=== PATIENT | male | born 1940 | race Caucasian/White ===

== ENCOUNTER 2017-09-08 14:07 | Emergency (ER) | payer MEDICARE, OTHER ==
[~2017-09-08] VITALS: Ht 182.9 cm; Wt 79.0 kg
[~2017-09-08 14:07] MED LIST: CIPR-9 PO; NORC5TAB PO
[2017-09-08 14:12] VITALS: BP 147/88; PULSE 63; RESP 16; TEMP 97.8; O2SAT 99
[2017-09-08 14:25] VITALS: RESP 17; O2SAT 99
--- NOTE | 2017-09-08 14:26 | PD ---
HPI Chief Complaint: left hip pain status post fall Time Seen by Provider: 14:12 Travel History International Travel<30 days: No Contact w/Intl Traveler<30days: No Traveled to known affect area: No History of Present Illness HPI 77-year-old male with history of dementia with Lewie bodies, comes in with unwitnessed fall from a recliner with secondary left hip pain, with left lower leg shortening and Rotation. Patient received 5 mg morphine IV with improvement of his pain. Pain was originally 9 out of 10 and now is stated to be 0. Patient denies any other injury or complaints. He is allergic to sulfa. PFSH Past Medical History Arthritis: Yes (osteoporosis) Anxiety: Yes Dementia: Yes Genitourinary: Yes (BPH) Parkinson's Disease: Yes Past Surgical History Pacemaker: No Other Surgery: Yes (hemorrhoidectomy) Social History Alcohol Use: No Tobacco Use: No Substance Use: No Allergies-Medications (Allergen,Severity, Reaction): Coded Allergies: Sulfa (Sulfonamide Antibiotics) (Verified Allergy, Intermediate, HIVES, ) Reported Meds & Prescriptions Reported Meds & Active Scripts Active [place] (Hydrocodone-Acetaminophen) 5-325 mg Tab 1 Tab PO Q4H PRN Reported Requip (Ropinirole) 1 Mg Tab 1 Mg PO TID Seroquel (Quetiapine Fumarate) 25 Mg Tab 12.5 Mg PO BID Doxycycline Hyclate 100 Mg Cap 100 Mg PO BID 10 Days Sinemet (Carbidopa-Levodopa) 25-100 Mg Tab 2 Tab PO TID Eldepryl (Selegiline HCl) 5 Mg Cap 5 Mg PO BID Restasis Opth 0.05% (Cyclosporine Opth 0.05%) 0.05% Emul 1 Drop EACH EYE BID Vitamin D-3 (Cholecalciferol) 2,000 Unit Tab 2,000 Units PO DAILY Seroquel (Quetiapine Fumarate) 50 Mg Tab 50 Mg PO HS Omeprazole 40 Mg Cap 40 Mg PO DAILY Review of Systems ROS Limitations: Poor Historian Except as stated in HPI: all other systems reviewed are Neg General / Constitutional: No: Fever Eyes: No: Visual changes HENT: No: Headaches Cardiovascular: No: Chest Pain or Discomfort Respiratory: No: Shortness of Breath Gastrointestinal: No: Abdominal Pain Genitourinary: No: Dysuria Musculoskeletal: No: Pain Skin: No Rash Neurologic: No: Weakness Psychiatric: No: Depression Endocrine: No: Polydipsia Hematologic/Lymphatic: No: Easy Bruising Physical Exam Narrative GENERAL: Patient appears in no acute distress. SKIN: Warm and dry. Normal color. Normal turgor. No obvious signs of trauma or ecchymosis. No abrasions or wounds HEAD: Atraumatic. Normocephalic. EYES: Pupils equal and round. No scleral icterus. No injection or drainage. ENT: No nasal bleeding or discharge. Mucous membranes pink and moist. Pharynx is clear. Airway is patent. NECK: Trachea midline. Supple and nontender. CARDIOVASCULAR: Regular rate and rhythm. RESPIRATORY: No accessory muscle use. Clear to auscultation. Breath sounds equal bilaterally. MUSCULOSKELETAL: Extremities without clubbing, cyanosis, or edema. Patient has external rotation and shortening of the left lower extremity. He complains of discomfort in the left hip region with palpation. No masses appreciated. He has normal neurovascular exam distally. NEUROLOGICAL: Awake and alert. No obvious cranial nerve deficits. Motor grossly within normal limits. Five out of 5 muscle strength in the arms and legs. Normal speech. PSYCHIATRIC: Appropriate mood and affect; insight and judgment normal. Data Data Last Documented VS Vital Signs Date Time Temp Pulse Resp B/P (MAP) Pulse Ox O2 Delivery O2 Flow Rate FiO2 09/08/17 14:25 17 99 Room Air 09/08/17 14:25 62 09/08/17 14:12 97.8 147/88 (107) Orders Orders Complete Blood Count With Diff (09/08/17 14:18) Comprehensive Metabolic Panel (09/08/17 14:18) Prothrombin Time / Inr (Pt) (09/08/17 14:18) Act Partial Throm Time (Ptt) (09/08/17 14:18) Iv Access Insert/Monitor (09/08/17 14:18) Ecg Monitoring (09/08/17 14:18) Oximetry (09/08/17 14:18) NPO (09/08/17 14:18) Sodium Chloride 0.9% Flush (Ns Flush) (09/08/17 14:30) Electrocardiogram (09/08/17 14:18) Femur (Ap & Lat/2vws) (09/08/17 14:18) Hip, Uni(Ap&Lat) W Ap Pelvis (09/08/17 14:18) Urinary Catheter Insert/Apply (09/08/17 14:18) Labs Laboratory Tests Test 09/08/17 14:30 White Blood Count 5.1 TH/MM3 Red Blood Count 4.07 MIL/MM3 Hemoglobin 13.2 GM/DL Hematocrit 37.2 % Mean Corpuscular Volume 91.4 FL Mean Corpuscular Hemoglobin 32.4 PG Mean Corpuscular Hemoglobin Concent 35.4 % Red Cell Distribution Width 13.5 % Platelet Count 156 TH/MM3 Mean Platelet Volume 7.1 FL Neutrophils (%) (Auto) 65.2 % Lymphocytes (%) (Auto) 24.6 % Monocytes (%) (Auto) 7.7 % Eosinophils (%) (Auto) 1.8 % Basophils (%) (Auto) 0.7 % Neutrophils # (Auto) 3.3 TH/MM3 Lymphocytes # (Auto) 1.3 TH/MM3 Monocytes # (Auto) 0.4 TH/MM3 Eosinophils # (Auto) 0.1 TH/MM3 Basophils # (Auto) 0.0 TH/MM3 CBC Comment DIFF FINAL Differential Comment Prothrombin Time 11.6 SEC Prothromb Time International Ratio 1.0 RATIO Activated Partial Thromboplast Time 30.1 SEC Blood Urea Nitrogen 24 MG/DL Creatinine 0.98 MG/DL Random Glucose 82 MG/DL Total Protein 6.5 GM/DL Albumin 3.7 GM/DL Calcium Level 8.7 MG/DL Alkaline Phosphatase 65 U/L Aspartate Amino Transf (AST/SGOT) 23 U/L Alanine Aminotransferase (ALT/SGPT) 12 U/L Total Bilirubin 0.5 MG/DL Sodium Level 141 MEQ/L Potassium Level 4.1 MEQ/L Chloride Level 105 MEQ/L Carbon Dioxide Level 30.3 MEQ/L Anion Gap 6 MEQ/L Estimat Glomerular Filtration Rate 74 ML/MIN [facility] Medical Decision Making Medical Screen Exam Complete: Yes Emergency Medical Condition: Yes Differential Diagnosis Unwitnessed fall. Left hip pain. Left hip fracture. Pelvic fracture. Narrative Course Patient appears medically stable at time of exam. Patient is made nothing by mouth. EKG and chest x-ray ordered. Labs ordered including CBC, CMP. Marroquin catheter is placed. X-rays of the left femur and left hip and pelvis are ordered. Chest x-ray is unremarkable for acute process. CBC is unremarkable. CMP is normal. X-ray of the hip shows no acute findings, and a partially healed obvious femoral neck fracture. Patient is discussed with Dr. Hazel who sees the patient as well. Patient is felt stable for return to nursing facility. Diagnosis Primary Impression: Fall from chair, initial encounter Additional Impressions: Hip pain, left S/p left hip fracture Referrals: Primary Care Physician Patient Instructions: Fall Prevention (ED), General Instructions Additional Instructions: Chest x-ray is unremarkable for acute process. CBC is unremarkable. CMP is normal. X-ray of the hip shows no acute findings, and a partially healed obvious femoral neck fracture. Patient is discussed with Dr. Hazel who sees the patient as well. Patient is felt stable for return to nursing facility. Med/Other Pt SpecificInfo: No Change to Meds Disposition: 01 DISCHARGE HOME Condition: Stable Kwame Wallis Sep 08, 2017 14:26
[2017-09-08] MEDS ORDERED: SODIUM CHLORIDE 0.9% FLUSH 10 ML FLUSH IV FLUSH PRN (14:30)
[2017-09-08 15:07] LABS: AUTOMATED NEUTROPHIL # 3.3 TH/MM3 (1.8-7.7); BASOPHIL % 0.7 % (0.0-2.0); EOSINOPHIL # 0.1 TH/MM3 (0-0.4); EOSINOPHIL % 1.8 % (0.0-4.0); HEMATOCRIT 37.2 % (39.0-51.0); HEMOGLOBIN 13.2 GM/DL (13.0-17.0); LYMPH % 24.6 % (9.0-44.0); LYMPHOCYTE # 1.3 TH/MM3 (1.0-4.8); MEAN CELL VOLUME 91.4 FL (80.0-100.0); MEAN CORPUSCULAR HEMOGLOBIN 32.4 PG (27.0-34.0); MEAN CORPUSCULAR HGB CONC 35.4 % (32.0-36.0); MEAN PLATELET VOLUME 7.1 FL (7.0-11.0); MONO % 7.7 % (0.0-8.0); MONOCYTE # 0.4 TH/MM3 (0-0.9); NEUT % 65.2 % (16.0-70.0); PLATELET COUNT 156 TH/MM3 (150-450); RED BLOOD COUNT 4.07 MIL/MM3 (4.50-5.90); RED CELL DISTRIBUTION WIDTH 13.5 % (11.6-17.2); WHITE BLOOD COUNT 5.1 TH/MM3 (4.0-11.0)
[2017-09-08 15:34] LABS: PROTHROMBIN TIME - PATIENT 11.6 SEC (9.8-11.6)
[2017-09-08 15:39] LABS: ALBUMIN 3.7 GM/DL (3.4-5.0); AST (GOT) 23 U/L (15-37); BICARBONATE 30.3 MEQ/L (21.0-32.0); BLOOD UREA NITROGEN 24 MG/DL (7-18); CALCIUM 8.7 MG/DL (8.5-10.1); CHLORIDE 105 MEQ/L (98-107); CREATININE 0.98 MG/DL (0.60-1.30); GLOMERULAR FILTRATION RATE 74 ML/MIN (>89); GLUCOSE,RANDOM 82 MG/DL (74-106); SODIUM (NA) 141 MEQ/L (136-145)
[2017-09-08 15:42] LABS: ALKALINE PHOSPHATASE 65 U/L (45-117); ALT (GPT) 12 U/L (12-78); TOTAL BILIRUBIN ADULT 0.5 MG/DL (0.2-1.0); TOTAL PROTEIN 6.5 GM/DL (6.4-8.2)
--- NOTE | 2017-09-08 16:11 | RADRPT ---
EXAM DATE/TIME: 09/08/2017 15:34 [facility] COMPARISON: HIP LEFT (AP&LAT 2/3VWS) W AP PELVIS, July 21, 2017, 14:53. INDICATIONS : Fall, left hip pain. MEDICAL HISTORY : None. SURGICAL HISTORY : Hip pinning. ENCOUNTER: Initial ACUITY: 1 day PAIN SCORE: 0/10 LOCATION: Left hip FINDINGS: 3 orthopedic pins in the proximal left femur stable from prior. The bony pelvic ring appears grossly intact. There is sclerosis at the fracture line medially and persistent fracture step off seen supe riorly; the superior step off is unchanged from prior examination 07/21/17. CONCLUSION: No acute findings. There is evidence of partial healing of the left femoral neck fracture in the inf erior medial aspect and with non-bony union superiorly. Lavell Styles MD on September 08, 2017 at 16:08 Board Certified Radiologist. This report was verified electronically.
--- NOTE | 2017-09-08 16:31 | RADRPT ---
EXAM DATE/TIME: 09/08/2017 15:38 [facility] COMPARISON: HIP LEFT (AP&LAT 2/3VWS) W AP PELVIS, July 21, 2017, 14:53. INDICATIONS : Fall, pain in left hip. MEDICAL HISTORY : None. SURGICAL HISTORY : Left hip pinning. ENCOUNTER: Initial ACUITY: 1 day PAIN SCORE: 0/10 LOCATION: Left femur FINDINGS: Two view examination of the left femur demonstrates no evidence of acute fracture or dislocation. Piotr ny mineralization is normal. There 3 orthopedic pins in the proximal left femur; there is a persiste nt cortical step off at the superior junction of femoral head or neck, unchanged from prior exam.. Th e soft tissue structures are intact. CONCLUSION: 1. The shaft of the femur is intact. 2. Stable appearance to the left femoral neck fracture with [address] there Lavell Styles MD on September 08, 2017 at 16:28 Board Certified Radiologist. This report was verified electronically.
[2017-09-08 18:10] VITALS: BP 130/77; TEMP 97.8
--- NOTE | 2017-09-08 21:10 | EKG ---
Date Performed: 09/08/2017 Time Performed: 14:47:30 PTAGE: 77 years EKG: Sinus rhythm MODERATE INTRAVENTRICULAR CONDUCTION DELAY BORDERLINE ECG PREVIOUS TRACING : 05/31/2017 20.57 Compared to prior tracing no significant change DOCTOR: Elisabeth Stevens Interpretating Date/Time 09/08/2017 21:08:54
== END 2017-09-08 18:11 | disposition home or self-care (01) ==
LOC: EDUNIT# 14:07 → NEPC 14:07
DX: M25.552 Pain in left hip (principal); R94.31 Abnormal electrocardiogram [ECG] [EKG]; F03.90 Unspecified dementia, unspecified severity, without behavioral disturbance, psychotic disturbance, mood disturbance, and anxiety; Z87.81 Personal history of (healed) traumatic fracture; Z87.39 Personal history of other diseases of the musculoskeletal system and connective tissue; Z86.59 Personal history of other mental and behavioral disorders; Z87.438 Personal history of other diseases of male genital organs; W07.XXXA Fall from chair, initial encounter; Y92.129 Unspecified place in nursing home as the place of occurrence of the external cause
CPT/HCPCS: 51702; 73502; 73552; 80053; 85025; 85610; 85730; 93005

== ENCOUNTER 2017-09-09 11:19 | Inpatient (IN) | payer MEDICARE, OTHER ==
[2017-09-09] VITALS (7 sets, daily range): BP systolic 137–161; BP diastolic 70–88; PULSE 63–89; RESP 16–22; TEMP 97.3–102.1; O2SAT 96–99
[~2017-09-09 11:19] MED LIST changes: -CIPR-9 PO
--- NOTE | 2017-09-09 12:05 | PD ---
HPI Chief Complaint: Fever Time Seen by Provider: 11:46 Travel History International Travel<30 days: No Contact w/Intl Traveler<30days: No Traveled to known affect area: No History of Present Illness HPI 77 years old male was brought in from local retirement for fever. Patient has history of dementia. Patient had a fall yesterday and was seen in emergency room at the [facility]. CBC CMP and x-ray of the femur and hip were done. Results were negative. Patient was discharged home. Patient's on doxycycline day #7 for UTI. Patient started having fever this morning. Patient also was with increasing trembling. Patient has history of Parkinson disease. Patient complains of headache. Patient states that headache aching headache diffuse over the head. Patient denies any visual change. Patient denies any neck pain. Patient denies any chest pain or shortness of breath. Patient denies abdominal pain. Patient denies any focal weakness or numbness of the extremity. Patient has history of urinary incontinence. PFSH Past Medical History Arthritis: Yes (osteoporosis) Anxiety: Yes Dementia: Yes Diminished Hearing: No Genitourinary: Yes (BPH) Neurologic: Yes Parkinson's Disease: Yes Psychiatric: Yes Tetanus Vaccination: Unknown Influenza Vaccination: Yes Past Surgical History Pacemaker: No Other Surgery: Yes (hemorrhoidectomy) Social History Alcohol Use: No Tobacco Use: No Substance Use: No Allergies-Medications (Allergen,Severity, Reaction): Coded Allergies: Sulfa (Sulfonamide Antibiotics) (Verified Allergy, Intermediate, HIVES, ) Reported Meds & Prescriptions Reported Meds & Active Scripts Active [place] (Hydrocodone-Acetaminophen) 5-325 mg Tab 1 Tab PO Q4H PRN Reported Requip (Ropinirole) 1 Mg Tab 1 Mg PO TID Doxycycline Hyclate 100 Mg Cap 100 Mg PO BID Alprazolam 0.5 Mg Tab 0.5 Mg PO BID PRN Vitamin D3 (Cholecalciferol) 2,000 Unit Cap 2,000 Units PO DAILY Avodart (Dutasteride) 0.5 Mg Cap 0.5 Mg PO DAILY Seroquel (Quetiapine Fumarate) 25 Mg Tab 12.5 Mg PO BID Sinemet (Carbidopa-Levodopa) 25-100 Mg Tab 2 Tab PO TID Eldepryl (Selegiline HCl) 5 Mg Cap 5 Mg PO BID Restasis Opth 0.05% (Cyclosporine Opth 0.05%) 0.05% Emul 1 Drop EACH EYE BID Seroquel (Quetiapine Fumarate) 50 Mg Tab 50 Mg PO HS Omeprazole 40 Mg Cap 40 Mg PO DAILY Review of Systems General / Constitutional: Positive: Fever Eyes: No: Visual changes HENT: Positive: Headaches Cardiovascular: No: Chest Pain or Discomfort Respiratory: No: Shortness of Breath Gastrointestinal: No: Abdominal Pain Genitourinary: No: Dysuria Musculoskeletal: No: Pain Skin: No Rash Neurologic: No: Weakness Psychiatric: No: Depression Endocrine: No: Polydipsia Hematologic/Lymphatic: No: Easy Bruising Physical Exam Narrative GENERAL: Well-nourished, well-developed patient. SKIN: Focused skin assessment warm/dry. HEAD: Normocephalic. EYES: No scleral icterus. No injection or drainage. NECK: Supple, trachea midline. No JVD or lymphadenopathy. CARDIOVASCULAR: Regular rate and rhythm without murmurs, gallops, or rubs. RESPIRATORY: Breath sounds equal bilaterally. No accessory muscle use. GASTROINTESTINAL: Abdomen soft, non-tender, nondistended. MUSCULOSKELETAL: No cyanosis, or edema. BACK: Nontender without obvious deformity. No CVA tenderness. exam: Patient has mild irritation to the scrotum area from urinary incontinence. No evidence of infection. No urethral discharge. No rash noted. Neurologic exam: Patient's awake and alert oriented to place and person. Patient can move all extremity. No obvious focal neurological deficit. Data Data Last Documented VS Vital Signs Date Time Temp Pulse Resp B/P (MAP) Pulse Ox O2 Delivery O2 Flow Rate FiO2 09/09/17 13:28 78 20 150/84 (106) 97 Room Air 09/09/17 12:20 102.1 Orders Orders Lactic Acid (09/09/17 11:39) Electrocardiogram (09/09/17 11:55) Complete Blood Count With Diff (09/09/17 11:55) Comprehensive Metabolic Panel (09/09/17 11:55) Prothrombin Time / Inr (Pt) (09/09/17 11:55) Act Partial Throm Time (Ptt) (09/09/17 11:55) Blood Culture (09/09/17 11:55) Urinalysis - C+S If Indicated (09/09/17 11:55) Thyroid Stimulating Hormone (09/09/17 11:55) Influenzae A/B Antigen (09/09/17 11:55) Chest, Single Ap (09/09/17 11:55) Ct Brain W/O Iv Contrast(Rout) (09/09/17 11:55) Iv Access Insert/Monitor (09/09/17 11:55) Ecg Monitoring (09/09/17 11:55) Oximetry (09/09/17 11:55) Urinary Catheter Insert/Apply (09/09/17 11:55) Sodium Chlor 0.9% 1000 Ml Inj (Ns 1000 M (09/09/17 12:45) Acetaminophen (Tylenol) (09/09/17 12:45) Urine Culture (09/09/17 12:15) Labs Laboratory Tests Test 09/09/17 11:30 09/09/17 12:15 White Blood Count 4.5 TH/MM3 Red Blood Count 4.20 MIL/MM3 Hemoglobin 12.9 GM/DL Hematocrit 37.9 % Mean Corpuscular Volume 90.2 FL Mean Corpuscular Hemoglobin 30.6 PG Mean Corpuscular Hemoglobin Concent 33.9 % Red Cell Distribution Width 12.6 % Platelet Count 146 TH/MM3 Mean Platelet Volume 6.9 FL Neutrophils (%) (Auto) 94.1 % Lymphocytes (%) (Auto) 5.1 % Monocytes (%) (Auto) 0.2 % Eosinophils (%) (Auto) 0.1 % Basophils (%) (Auto) 0.5 % Neutrophils # (Auto) 4.3 TH/MM3 Lymphocytes # (Auto) 0.2 TH/MM3 Monocytes # (Auto) 0.0 TH/MM3 Eosinophils # (Auto) 0.0 TH/MM3 Basophils # (Auto) 0.0 TH/MM3 CBC Comment DIFF FINAL Differential Comment Prothrombin Time 11.7 SEC Prothromb Time International Ratio 1.1 RATIO Activated Partial Thromboplast Time 26.1 SEC Blood Urea Nitrogen 26 MG/DL Creatinine 1.10 MG/DL Random Glucose 83 MG/DL Total Protein 6.5 GM/DL Albumin 3.7 GM/DL Calcium Level 8.4 MG/DL Alkaline Phosphatase 65 U/L Aspartate Amino Transf (AST/SGOT) 51 U/L Alanine Aminotransferase (ALT/SGPT) 29 U/L Total Bilirubin 0.9 MG/DL Sodium Level 142 MEQ/L Potassium Level 3.8 MEQ/L Chloride Level 105 MEQ/L Carbon Dioxide Level 27.0 MEQ/L Anion Gap 10 MEQ/L Estimat Glomerular Filtration Rate 65 ML/MIN Lactic Acid Level 1.6 mmol/L Thyroid Stimulating Hormone 3rd Gen 1.430 uIU/ML Urine Collection Type CLEAN CATCH Urine Color YELLOW Urine Turbidity CLEAR Urine pH 6.5 Urine Specific [place] 1.012 Urine Protein NEG mg/dL Urine Glucose (UA) NEG mg/dL Urine Ketones NEG mg/dL Urine Occult Blood LARGE Urine Nitrite NEG Urine Bilirubin NEG Urine Leukocyte Esterase SMALL Urine RBC 20-24 /hpf Urine WBC 9-14 /hpf Urine Squamous Epithelial Cells 0-5 /hpf Microscopic Urinalysis Comment CULTURE INDICATED Urine Collection Time 12:15 [facility] Medical Decision Making Medical Screen Exam Complete: Yes Emergency Medical Condition: Yes Interpretation(s) Last Impressions Head CT 09/09/17 1155 Signed Impressions: Service Date/Time: Saturday, September 09, 2017 12:28 - CONCLUSION: Negative noncontrast CT. Gopi Chinchilla MD Chest X-Ray 09/09/17 1488 Signed Impressions: Service Date/Time: Saturday, September 09, 2017 12:05 - CONCLUSION: No acute disease. There is no focal consolidation. Gopi Chinchilla MD 1336 PM. CBC WBC 4.5. Hemoglobin 12 point hematocrit 37.9. Platelet 146. 94 neutrophil. CMP within normal limit. Lactic acid 1.6. BUN 26. GFR 65. UA positive for WBC and RBC. Differential Diagnosis Differential diagnosis including viral syndrome, UTI, pneumonia, sepsis, encephalitis. Narrative Course 77 years old male with fever. Patient on day 7 of doxycycline for UTI. Normal saline solution 1 L IV bolus. Tylenol 650 mg by mouth. Vancomycin 1 g IV. Zosyn 3.375 g IV. Diagnosis Primary Impression: Sepsis Qualified Codes: A41.9 - Sepsis, unspecified organism Additional Impression: UTI (urinary tract infection) Qualified Codes: N30.00 - Acute cystitis without hematuria Admitting Information Admitting Physician Requests: Admit Gaurav Kim MD Sep 09, 2017 12:05
--- NOTE | 2017-09-09 12:28 | RADRPT ---
EXAM DATE/TIME: 09/09/2017 12:05 [facility] COMPARISON: No previous studies available for comparison. INDICATIONS : Fever MEDICAL HISTORY : Parkinson's disease SURGICAL HISTORY : None. ENCOUNTER: Initial ACUITY: 1 day PAIN SCORE: 0/10 LOCATION: Bilateral chest FINDINGS: A single view of the chest demonstrates the lungs to be symmetrically aerated without evidence of mas s, infiltrate or effusion. The study is Midinspiratory with mild crowding of the lung vasculature. T here overlying electrocardiogram leads. The cardiomediastinal contours are unremarkable. Osseous str uctures are intact. CONCLUSION: No acute disease. There is no focal consolidation. Gopi Chinchilla MD on September 09, 2017 at 12:26 Board Certified Radiologist. This report was verified electronically.
[2017-09-09 12:32] LABS: AUTOMATED NEUTROPHIL # 4.3 TH/MM3 (1.8-7.7); BASOPHIL % 0.5 % (0.0-2.0); EOSINOPHIL % 0.1 % (0.0-4.0); HEMATOCRIT 37.9 % (39.0-51.0); HEMOGLOBIN 12.9 GM/DL (13.0-17.0); LYMPH % 5.1 % (9.0-44.0); LYMPHOCYTE # 0.2 TH/MM3 (1.0-4.8); MEAN CELL VOLUME 90.2 FL (80.0-100.0); MEAN CORPUSCULAR HEMOGLOBIN 30.6 PG (27.0-34.0); MEAN CORPUSCULAR HGB CONC 33.9 % (32.0-36.0); MEAN PLATELET VOLUME 6.9 FL (7.0-11.0); MONO % 0.2 % (0.0-8.0); NEUT % 94.1 % (16.0-70.0); PLATELET COUNT 146 TH/MM3 (150-450); RED CELL DISTRIBUTION WIDTH 12.6 % (11.6-17.2); WHITE BLOOD COUNT 4.5 TH/MM3 (4.0-11.0)
[2017-09-09 12:41] LABS: BILIRUBIN, URINE NEG (NEG); BLOOD, URINE LARGE (NEG); GLUCOSE,URINE NEG (NEG); KETONE, URINE NEG (NEG); NITRITE,URINE NEG (NEG); PH, URINE 6.5 (5.0-8.5); URINE LEUKOCYTE ESTERASE SMALL (NEG)
[2017-09-09] MEDS ORDERED: SODIUM CHLOR 0.9% 1000 ML INJ 1,000 ML IV ONE (12:45)
[2017-09-09] MEDS ORDERED: ACETAMINOPHEN 325 MG TAB PO ONE (12:45)
[2017-09-09 12:46] LABS: CHLORIDE 105 MEQ/L (98-107); SODIUM (NA) 142 MEQ/L (136-145)
[2017-09-09 12:49] LABS: CALCIUM 8.4 MG/DL (8.5-10.1)
[2017-09-09 12:50] LABS: ALBUMIN 3.7 GM/DL (3.4-5.0); BLOOD UREA NITROGEN 26 MG/DL (7-18); GLUCOSE,RANDOM 83 MG/DL (74-106)
--- NOTE | 2017-09-09 12:52 | RADRPT ---
EXAM DATE/TIME: 09/09/2017 12:28 [facility] COMPARISON: No previous studies available for comparison. INDICATIONS : Cephalgia. Fever. RADIATION DOSE: 67.95 CTDIvol (mGy) MEDICAL HISTORY : Dementia. Parkinsons. SURGICAL HISTORY : Hemorrhoidectomy. ENCOUNTER: Initial ACUITY: 1 day PAIN SCALE: 6/10 LOCATION: cranial TECHNIQUE: Multiple contiguous axial images were obtained of the head. Using automated exposure control and adj ustment of the mA and/or kV according to patient size, radiation dose was kept as low as reasonably a chievable to obtain optimal diagnostic quality images. DICOM format image data is available electro nically for review and comparison. FINDINGS: CEREBRUM: The ventricles are normal for age. No evidence of midline shift, mass lesion, hemorrhage or acute in farction. No extra-axial fluid collections are seen. POSTERIOR FOSSA: The cerebellum and brainstem are intact. The 4th ventricle is midline. The cerebellopontine angle i s unremarkable. EXTRACRANIAL: The visualized portion of the orbits is intact. SKULL: The calvaria is intact. No evidence of skull fracture. CONCLUSION: Negative noncontrast CT. Gopi Chinchilla MD on September 09, 2017 at 12:48 Board Certified Radiologist. This report was verified electronically.
[2017-09-09 12:53] LABS: ALT (GPT) 29 U/L (12-78); AST (GOT) 51 U/L (15-37); GLOMERULAR FILTRATION RATE 65 ML/MIN (>89)
[2017-09-09 12:55] LABS: TOTAL BILIRUBIN ADULT 0.9 MG/DL (0.2-1.0); TOTAL PROTEIN 6.5 GM/DL (6.4-8.2)
[2017-09-09 12:56] LABS: ALKALINE PHOSPHATASE 65 U/L (45-117)
[2017-09-09 12:57] LABS: INTERNATIONAL NORMALIZED RATIO 1.1 RATIO; PROTHROMBIN TIME - PATIENT 11.7 SEC (9.8-11.6)
[2017-09-09 13:17] LABS: URINE COLOR YELLOW (YELLW/STRAW)
[2017-09-09 13:18] LABS: SQUAMOUS EPITHELIAL CELL URINE 0-5 /hpf (0-5)
[2017-09-09] MEDS ORDERED: PIPERACIL-TAZO 3.375 GM PREMIX 50 ML IV ONE (13:45)
[2017-09-09] MEDS: VANCOMYCIN INJ 1,000 MG in SODIUM CHLOR 0.9% 250 ML INJ 250 ML IV ONE ×2 (13:45→16:05)
[2017-09-09] MEDS ORDERED: SODIUM CHLORIDE 0.9% FLUSH 10 ML FLUSH IV FLUSH PRN (14:15)
[2017-09-09] MEDS ORDERED: SENNOSIDES 8.6 MG TAB PO PRN (14:15)
[2017-09-09] MEDS ORDERED: NALOXONE HCL 0.4 MG/ML AMP IV PUSH PRN (14:15)
[2017-09-09] MEDS ORDERED: LACTULOSE SYRUP 20 GM/30 ML CUP PO PRN (14:15)
[2017-09-09] MEDS ORDERED: ACETAMINOPHEN 325 MG TAB PO PRN (14:15)
[2017-09-09] MEDS ORDERED: BISACODYL 10 MG SUPP RECTAL PRN (14:15)
[2017-09-09] MEDS ORDERED: MAGNESIUM HYDROXIDE SUSP 30 ML CUP PO PRN (14:15)
[2017-09-09] MEDS: SODIUM CHLOR 0.9% 1000 ML INJ 1,000 ML IV SCH (16:04)
[2017-09-09] MEDS: ENOXAPARIN SODIUM 40 MG/0.4 ML SYRINGE SQ SCH (16:08)
[2017-09-09] MEDS ORDERED: ALPRAZolam 0.5 MG TAB PO PRN (16:15)
[2017-09-09] MEDS ORDERED: ACETAMINOPHEN/HYDROcodone 325 MG/5 MG TAB PO PRN (16:15)
--- NOTE | 2017-09-09 17:29 | HHI.HP ---
[facility] Admission Diagnosis sepsis. UTI. Diagnoses: Travel History International Travel<30 Days: No Contact w/Intl Traveler <30 Da: No Traveled to Known Affected Are: No Sepsis Criteria SIRS Criteria (2 or more): Temp > 100.9 or < 96.8, RR > 20 or PaCO2 < 32 Criteria Outcome: Meets sepsis criteria History of Present Illness This is a pleasant 77 year-old male assisted living facility resident with past medical history of Parkinson's dementia who was brought into the ER today for evaluation of shaking chills and fever. History is obtained from the patient and from discussing with the ER physician. Patient is able to give a reasonable history although is not oriented to date and is slightly confused at times. The patient had been receiving doxycycline for urinary tract infections. He states he has a history of urinary tract infections in the past as well as urinary incontinence. He was feeling okay up until yesterday when he started to develop chills and fever. Symptoms moderate no palliative or provocative factors. He denied nausea vomiting abdominal pain. He did complain of a slight sore throat yesterday. Also has been having intermittent right temporal headache. No double vision slurred speech unilateral weakness dysarthria. 10 point review systems otherwise negative. Past Family Social History Past Medical History Parkinson's dementia Hypertension Anxiety Orthostatic hypertension BPH GERD Osteoporosis with vitamin D deficiency Past Surgical History Hemorrhoidectomy Left hip surgery Reported Medications Allergies Coded Allergies Type Severity Reaction Last Updated Verified Sulfa (Sulfonamide Antibiotics) Allergy Intermediate HIVES 09/08/17 Yes Active Scripts Medications Dose Route/Sig Max Daily Dose Days Date Category Requip (Ropinirole) 1 Mg Tab 1 Mg PO TID 09/09/17 Reported Doxycycline Hyclate 100 Mg Cap 100 Mg PO BID 09/09/17 Reported Alprazolam 0.5 Mg Tab 0.5 Mg PO BID PRN 09/09/17 Reported Vitamin D3 (Cholecalciferol) 2,000 Unit Cap 2,000 Units PO DAILY 09/09/17 Reported Avodart (Dutasteride) 0.5 Mg Cap 0.5 Mg PO DAILY 09/09/17 Reported Seroquel (Quetiapine Fumarate) 25 Mg Tab 12.5 Mg PO BID 09/08/17 Reported [place] (Hydrocodone-Acetaminophen) 5-325 mg Tab 1 Tab PO Q4H PRN 06/03/17 Rx Sinemet (Carbidopa-Levodopa) 25-100 Mg Tab 2 Tab PO TID 05/31/17 Reported Eldepryl (Selegiline HCl) 5 Mg Cap 5 Mg PO BID 05/31/17 Reported Restasis Opth 0.05% (Cyclosporine Opth 0.05%) 0.05% Emul 1 Drop EACH EYE BID 05/31/17 Reported Seroquel (Quetiapine Fumarate) 50 Mg Tab 50 Mg PO HS 05/31/17 Reported Omeprazole 40 Mg Cap 40 Mg PO DAILY 05/31/17 Reported Allergies: Coded Allergies: Sulfa (Sulfonamide Antibiotics) (Verified Allergy, Intermediate, HIVES, ) Family History Father had diabetes his mother had breast cancer Social History No history of alcohol tobacco or drug use Physical Exam Vital Signs Vital Signs Date Time Temp Pulse Resp B/P (MAP) Pulse Ox O2 Delivery O2 Flow Rate FiO2 09/09/17 15:57 100.9 89 17 137/88 (104) 96 09/09/17 15:05 99.1 80 20 97 09/09/17 13:28 78 20 150/84 (106) 97 Room Air 09/09/17 12:31 97 Room Air 09/09/17 12:20 102.1 88 20 160/71 (100) 97 Room Air 09/09/17 12:05 88 97 Room Air 09/09/17 11:20 102.1 88 22 161/78 (105) 97 Physical Exam GENERAL: This is a well-nourished, well-developed male patient, in no apparent distress. SKIN: No rashes, ecchymoses or lesions. Cool and dry. HEAD: Atraumatic. Normocephalic. No temporal tenderness. EYES: Pupils equal round and reactive. Extraocular motions intact. No scleral icterus. No injection or drainage. ENT: Nares patent without drainage. Throat without erythema, tonsillar hypertrophy or exudate. Uvula midline. Airway patent. NECK: Trachea midline. No JVD or lymphadenopathy. Supple, nontender, no meningeal signs. CARDIOVASCULAR: Regular rate and rhythm without murmurs, gallops, or rubs. RESPIRATORY: Clear to auscultation. Breath sounds equal bilaterally. No wheezes , rales, or rhonchi. GASTROINTESTINAL: Abdomen soft, non-tender, nondistended. No hepato-splenomegaly , or palpable masses. No guarding. MUSCULOSKELETAL: Extremities without clubbing, cyanosis, or edema. No joint tenderness, effusion, or edema noted. NEUROLOGICAL: Awake and alert. Oriented to self and place but not date. Cogwheel rigidity in upper extremities bilaterally. Speech within normal limits. Laboratory Laboratory Tests Test 09/09/17 11:30 09/09/17 12:15 White Blood Count 4.5 Red Blood Count 4.20 Hemoglobin 12.9 Hematocrit 37.9 Mean Corpuscular Volume 90.2 Mean Corpuscular Hemoglobin 30.6 Mean Corpuscular Hemoglobin Concent 33.9 Red Cell Distribution Width 12.6 Platelet Count 146 Mean Platelet Volume 6.9 Neutrophils (%) (Auto) 94.1 Lymphocytes (%) (Auto) 5.1 Monocytes (%) (Auto) 0.2 Eosinophils (%) (Auto) 0.1 Basophils (%) (Auto) 0.5 Neutrophils # (Auto) 4.3 Lymphocytes # (Auto) 0.2 Monocytes # (Auto) 0.0 Eosinophils # (Auto) 0.0 Basophils # (Auto) 0.0 CBC Comment DIFF FINAL Differential Comment Prothrombin Time 11.7 Prothromb Time International Ratio 1.1 Activated Partial Thromboplast Time 26.1 Blood Urea Nitrogen 26 Creatinine 1.10 Random Glucose 83 Total Protein 6.5 Albumin 3.7 Calcium Level 8.4 Alkaline Phosphatase 65 Aspartate Amino Transf (AST/SGOT) 51 Alanine Aminotransferase (ALT/SGPT) 29 Total Bilirubin 0.9 Sodium Level 142 Potassium Level 3.8 Chloride Level 105 Carbon Dioxide Level 27.0 Anion Gap 10 Estimat Glomerular Filtration Rate 65 Lactic Acid Level 1.6 Thyroid Stimulating Hormone 3rd Gen 1.430 Urine Collection Type CLEAN CATCH Urine Color YELLOW Urine Turbidity CLEAR Urine pH 6.5 Urine Specific [place] 1.012 Urine Protein NEG Urine Glucose (UA) NEG Urine Ketones NEG Urine Occult Blood LARGE Urine Nitrite NEG Urine Bilirubin NEG Urine Leukocyte Esterase SMALL Urine RBC 20-24 Urine WBC 9-14 Urine Squamous Epithelial Cells 0-5 Microscopic Urinalysis Comment CULTURE INDICATED Urine Collection Time 12:15 Date/Time Source Procedure Growth Status 09/09/17 11:40 Blood Peripheral Aerobic Blood Culture Pending Received 09/09/17 11:40 Blood Peripheral Anaerobic Blood Culture Pending Received 09/09/17 12:40 Nasal Washing Influenza Types A,B Antigen (JE) - Final NEGATIVE FOR FLU A AND B ANTIGEN.... Complete 09/09/17 12:15 Urine Clean Catch Urine Culture Pending Received Result Diagram: 09/09/17 1130 09/09/17 1130 Imaging Last Impressions Head CT 09/09/17 1155 Signed Impressions: Service Date/Time: Saturday, September 09, 2017 12:28 - CONCLUSION: Negative noncontrast CT. Gopi Chinchilla MD Chest X-Ray 09/09/17 1155 Signed Impressions: Service Date/Time: Saturday, September 09, 2017 12:05 - CONCLUSION: No acute disease. There is no focal consolidation. Gopi Chinchilla MD Septic Shock Reassessment Heart: Regular rate and rhythm Lungs: Clear Skin: Warm Peripheral Pulses: Bounding Right Radial Bounding Left Radial Capillary Refill: Brisk Caprini VTE Risk Assessment Caprini VTE Risk Assessment: Mod/High Risk (score >= 2) Caprini Risk Assessment Model Point Value = 1 Point Value = 2 Point Value = 3 Point Value = 5 Age 41-60 Minor surgery BMI > 25 kg/m2 Swollen legs Varicose veins or History of unexplained or recurrent spontaneous Oral contraceptives or hormone replacement Sepsis (< 1 month) Serious lung disease, including pneumonia (< 1 month) Abnormal pulmonary function Acute myocardial infarction Congestive heart failure (< 1 month) History of inflammatory bowel disease Medical patient at bed rest Age 61-74 Arthroscopic surgery Major open surgery (> 45 min) Laparoscopic surgery (> 45 min) Malignancy Confined to bed (> 72 hours) Immobilizing plaster cast Central venous access Age >= 75 History of VTE Family history of VTE Factor V Leiden Prothrombin [id number] Lupus anticoagulant Anticardiolipin antibodies Elevated serum homocysteine Heparin-induced thrombocytopenia Other congenital or acquired thrombophilia Stroke (< 1 month) Elective arthroplasty Hip, pelvis, or leg fracture Acute spinal cord injury (< 1 month) Prophylaxis Regimen Total Risk Factor Score Risk Level Prophylaxis Regimen 0-1 Low Early ambulation 2 Moderate Order ONE of the following: *Sequential Compression Device (SCD) *Heparin 5000 units SQ BID 3-4 Higher Order ONE of the following medications: *Heparin 5000 units SQ TID *Enoxaparin/Lovenox 40 mg SQ daily (WT < 150 kg, CrCl > 30 mL/min) *Enoxaparin/Lovenox 30 mg SQ daily (WT < 150 kg, CrCl > 10-29 mL/min) *Enoxaparin/Lovenox 30 mg SQ BID (WT < 150 kg, CrCl > 30 mL/min) AND/OR *Sequential Compression Device (SCD) 5 or more Highest Order ONE of the following medications: *Heparin 5000 units SQ TID (Preferred with Epidurals) *Enoxaparin/Lovenox 40 mg SQ daily (WT < 150 kg, CrCl > 30 mL/min) *Enoxaparin/Lovenox 30 mg SQ daily (WT < 150 kg, CrCl > 10-29 mL/min) *Enoxaparin/Lovenox 30 mg SQ BID (WT < 150 kg, CrCl > 30 mL/min) AND *Sequential Compression Device (SCD) Assessment and Plan Problem List: (1) Sepsis ICD Code: A41.9 - Sepsis, unspecified organism Status: Acute (2) UTI (urinary tract infection) ICD Code: N39.0 - Urinary tract infection, site not specified Status: Acute Assessment and Plan -UTI with sepsis features, failed outpatient treatment with doxycycline. Will admit for broad-spectrum IV antibiotics. Lactic acid was not elevated blood pressure stable. Give gentle IV fluids overnight. Will DC Marroquin as vital signs are stable. -Hypertension, also has history of orthostatic hypotension. Currently not on medication for this. Will monitor blood pressure. -Parkinson's dementia - continue home medications including Requip, selegiline, Sinemet, Seroquel. -Anxiety - continue Xanax as needed. -BPH. Continue Avodart. -GERD. Continue omeprazole. -DVT prophylaxis with Lovenox. Problem Qualifiers (1) Sepsis: Qualified Codes: A41.9 - Sepsis, unspecified organism (2) UTI (urinary tract infection): Qualified Codes: N30.00 - Acute cystitis without hematuria Shonna Bunch MD Sep 09, 2017 17:29
[2017-09-09] MEDS: CARBIDOPA/LEVODOPA 25 MG/100 MG TAB PO SCH (18:50)
[2017-09-09] MEDS: SODIUM CHLORIDE 0.9% FLUSH 10 ML FLUSH IV FLUSH SCH (21:00)
[2017-09-09] MEDS ORDERED: PATIENT OWN MEDICATION (Cyclosporine Opth 0.05% (Restasis Opth 0.05%) 1 DROP) EACH EYE SCH (21:00)
[2017-09-09] MEDS: PIPERACIL-TAZO 3.375 GM PREMIX 50 ML IV SCH (21:04)
[2017-09-09] MEDS: SELEGILINE HCL 5 MG CAP PO SCH (21:06)
[2017-09-09] MEDS: QUEtiapine FUMARATE 25 MG TAB PO SCH ×2 (21:06)
[2017-09-09] MEDS: DOCUSATE SODIUM 50 MG/SENNA 8.6 MG TAB PO SCH (21:06)
[2017-09-10] VITALS: BP 148/71; PULSE 59; RESP 16; TEMP 97.1; O2SAT 98
[2017-09-10] MEDS: PIPERACIL-TAZO 3.375 GM PREMIX 50 ML IV SCH ×4 (02:30→20:01)
[2017-09-10] MEDS: SODIUM CHLOR 0.9% 1000 ML INJ 1,000 ML IV SCH ×2 (06:59→23:13)
[2017-09-10 08:00] VITALS: BP 161/78; PULSE 92; RESP 17; TEMP 97.7; O2SAT 94
[2017-09-10] MEDS: SODIUM CHLORIDE 0.9% FLUSH 10 ML FLUSH IV FLUSH SCH ×2 (08:34→20:02)
[2017-09-10] MEDS: QUEtiapine FUMARATE 25 MG TAB PO SCH ×3 (08:35→20:03)
[2017-09-10] MEDS: DOCUSATE SODIUM 50 MG/SENNA 8.6 MG TAB PO SCH ×2 (08:35→20:03)
[2017-09-10] MEDS: FINASTERIDE 5 MG TAB PO SCH (08:36)
[2017-09-10] MEDS: CARBIDOPA/LEVODOPA 25 MG/100 MG TAB PO SCH ×3 (08:36→17:05)
[2017-09-10] MEDS: PANTOPRAZOLE SOD 40 MG DELAYED RELEASE TAB PO SCH (08:36)
[2017-09-10] MEDS: SELEGILINE HCL 5 MG CAP PO SCH ×2 (08:49→20:02)
--- NOTE | 2017-09-10 09:52 | HHI.PR ---
Subjective Remarks No fevers overnight. Patient states headache has resolved. Patient complains of feeling tired. Denies chills. Blood pressure has been stable. Urine output 1100 mL. Objective Vitals Vital Signs Date Time Temp Pulse Resp B/P (MAP) Pulse Ox O2 Delivery O2 Flow Rate FiO2 09/10/17 08:00 97.7 92 17 161/78 (105) 94 09/10/17 00:00 97.1 59 16 148/71 (96) 98 09/09/17 20:00 97.3 63 16 138/70 (92) 99 09/09/17 15:57 100.9 89 17 137/88 (104) 96 09/09/17 15:05 99.1 80 20 97 09/09/17 13:28 78 20 150/84 (106) 97 Room Air 09/09/17 12:31 97 Room Air 09/09/17 12:20 102.1 88 20 160/71 (100) 97 Room Air 09/09/17 12:05 88 97 Room Air 09/09/17 11:20 102.1 88 22 161/78 (105) 97 I/O 09/09/17 09/09/17 09/09/17 09/10/17 09/10/17 09/10/17 07:00 15:00 23:00 07:00 15:00 23:00 Intake Total 1050 ml 220 ml 290 ml Output Total 700 ml 400 ml Balance 1050 ml -480 ml -110 ml Intake Oral 220 ml 240 ml IV Total 1050 ml 50 ml Output Urine Total 700 ml 400 ml # Bowel Movements 0 0 Result Diagram: 09/09/17 1130 09/09/17 1130 Objective Remarks GENERAL: This is a well-nourished, well-developed male patient, in no apparent distress. SKIN: No rashes, ecchymoses or lesions. Cool and dry. HEAD: Atraumatic. Normocephalic. EYES: Pupils equal. No scleral icterus. No injection or drainage. NECK: Trachea midline. No JVD or lymphadenopathy. Supple, nontender, no meningeal signs. CARDIOVASCULAR: Regular rate and rhythm without murmurs, gallops, or rubs. RESPIRATORY: Clear to auscultation. Breath sounds equal bilaterally. No wheezes , rales, or rhonchi. GASTROINTESTINAL: Abdomen soft, non-tender, nondistended. MUSCULOSKELETAL: Extremities without clubbing, cyanosis, or edema. NEUROLOGICAL: Awake and alert. Oriented to self and place but not date. Cogwheel rigidity in upper extremities bilaterally. Speech within normal limits. A/P Problem List: (1) Sepsis ICD Code: A41.9 - Sepsis, unspecified organism Status: Acute (2) UTI (urinary tract infection) ICD Code: N39.0 - Urinary tract infection, site not specified Status: Acute Assessment and Plan -Gram-negative lottie sepsis likely due to UTI - vital signs stable, continue Zosyn IV, normal saline at 70 mL per hour. As he is stable I will discontinue the [place] catheter. Follow up urine and blood cultures. --Hypertension, also has history of orthostatic hypotension. Currently not on medication for this. Will monitor blood pressure. -Parkinson's dementia - continue home medications including Requip, selegiline, Sinemet, Seroquel. -Anxiety - continue Xanax as needed. -BPH. Continue Avodart. -GERD. Continue omeprazole. -DVT prophylaxis with Lovenox. Problem Qualifiers (1) Sepsis: Qualified Codes: A41.9 - Sepsis, unspecified organism (2) UTI (urinary tract infection): Qualified Codes: N30.00 - Acute cystitis without hematuria Shonna Bunch MD Sep 10, 2017 09:52
[2017-09-10 12:00] VITALS: BP 139/80; PULSE 89; RESP 18; TEMP 97.5; O2SAT 95
--- NOTE | 2017-09-10 13:29 | EKG ---
Date Performed: 09/09/2017 Time Performed: 12:03:52 PTAGE: 77 years EKG: Sinus rhythm MODERATE INTRAVENTRICULAR CONDUCTION DELAY NONSPECIFIC T-WAVE ABNORMALITY BORDERLINE ECG Compared to prior tracing no significant change PREVIOUS TRACING : 09/08/2017 14.47 DOCTOR: Hernandez Reyna Interpretating Date/Time 09/10/2017 13:26:38
--- NOTE | 2017-09-10 14:20 | PD.CONS ---
Consult Service Palliative Care Consult Requested By Dr. Bunch Primary Care Physician Unknown Reason for Consultation a. To assist with evaluation and management of symptoms including:urinary frequency, confusion. b. To assist medical decision maker(s) with: better understanding of current medical conditions; weighing benefits/burdens of medical treatment options; making medical treatment decisions. HPI History of Present Illness Patient is 77-year-old male with a past medical history of Parkinson's, arthritis, anxiety, dementia, who is seen in the ER 09/08/2017 after falling. He has a history of recurrent falls with hip fracture, and also recurrent UTI. Patient had x-ray of the femur and hip done which were negative, and patient was discharged back to local nursing facility. Patient has been on doxycycline for UTI. On 09/09/2017 patient is noted to have fever, increased trembling, and was again brought to [facility]. In the ER: * WBCs 4.5, hemoglobin is 12.9, hematocrit is 37.9, platelet is 146 * Sodium is 142, potassium 3.8, chloride is 105, bicarbonate is 27, BUN is 26, creatinine is 1.10 * AST is 51, ALT is 29, albumin 3.7 * PT is 11.7, INR is 1.1, PTT is 26.1 * UA shows large amount of occult blood, positive leukocyte esterase, and cultures indicated * Blood culture shows Proteus species-preliminary * Urine culture shows gram-negative rods-preliminary * Head CT was negative, no evidence of midline shift, mass lesion, hemorrhage or acute infarction. * Chest x-ray shows no acute cardiopulmonary diseases. * Patient admitted to hospitalist services, for failed outpatient treatment with doxycycline. Patient is admitted and started on iv abx. IV fluids given. Apparently patient has been a hospice patient, with the cost. Family members have been upset that patient was admitted. Patient is a DNR. Palliative care was consulted as attending physician feels patient can at least participate in some of his care, and medical decisions. It has been documented pt has dementia. On my visit the patient is alert but confused. He thinks he is in [place] and that it is 2014. I told him he is in [place] and the year is 2017. I ask if he knows what neurological disease he has, he states "something that starts with a P..." I said Shiv's, he state yes. When I ask him does he know why he came to the hospital, pt trails off and ask me what company is this? I said this is [facility]. He states is that inside to border or outside of the border? When I ask him what that means, he states, I am not sure. Pt struggle also to tell me the name of his children. He states he has 3 children. "There is Bela, Jan. I ask is there anyone else? He said yes, but could not name. I state Wolf, then he say yes. (Son state pt only has 2 children: Wolf and Jan) . I ask him again, what state he is in, again he state "I am in [place]." He has enough memory deficits, that I feel he cannot weigh the risk / benefits of medical decision indepedently. On my exam I do not believe he has capacity to make medical decision. Pt's son say he has times of lucidity, but he noted its been getting worse. I ask him if we can call his family. He stated he is alright for Wolf to make medical decision for him. Pt on my exam does have some urinary frequency. Unable to quantify. Denies pain. I spoke with pt's son Wolf, review pt's current medical condition. Review that sometimes even in hospice, we treat with antibiotics, if it makes pt more comfortable. We did review that pt has a propensity of recurrent uti and falls, and he said that he knows there will be a point when antibiotics will not work for him. He also point that he is getting increasing difficultly with feeding and needs to be fed. He said no swallowing difficulties yet, but they have to modify food. He sees that pt will have challenges with aspiration as he decline further along , and he ask no intubation. Goals of care reviewed son Wolf He stated is appreciative of medical team taking care of pt, but would prefer if pt goes back to custodial with hospice tomorrow. He understand that if culture are not back by tomorrow, physician will just make the best educated guess, and that pt may decline that way, because not all the tests are back. He is amenable to have [facility] hospice to call back the hospital to follow up on the cultures. I reemphsize, better communication needs to take place with family, hospice, and nursing facility, as family is adamant pt should not be transferred to the hospital without calling family or hospice. Family indicate, they do now want pt back in the hospital, and it was a hard decision to get them on hospice in the first place, but they said pt does not want further hospitalization. Function/Cognitive Trajectory Pt has had multiple falls. Pt in May 2017 had hip fracture (left femoral neck ) and s/p surgery. Pt returen to the ER 07/21/2017 due to fall again, but did not fracture or post operative changes. Pt again had uti, and was given cipro. Return 09/08/17 for fall. Recurrent UTI. Needs assitance with all adls including dressing/ toilentry. and feeding. Have to cut his food more or modify to ensure he swallow better. No history of aspiration yet. Review of Systems ROS Limitations: Clinical Condition (confused. base on hpi, and family) Constitutional: COMPLAINS OF: Fatigue, Fever Endocrine: DENIES: Heat/cold intolerance Eyes: DENIES: Eye pain Ears, nose, mouth, throat: DENIES: Hearing loss, Hoarseness Respiratory: DENIES: Cough, Shortness of breath Cardiovascular: DENIES: Dyspnea on Exertion Gastrointestinal: DENIES: Abdominal pain, Black stools Genitourinary: COMPLAINS OF: Urinary frequency Musculoskeletal: COMPLAINS OF: Stiffness, Decreased range of motion Integumentary: DENIES: Abnormal pigmentation Neurologic: COMPLAINS OF: Abnormal gait, Tremor Psychiatric: COMPLAINS OF: Confusion (poor gait prone to falls) Past Family Social History Coded Allergies: Sulfa (Sulfonamide Antibiotics) (Verified Allergy, Intermediate, HIVES, ) Past Medical History Parkinson's dementia Hypertension Anxiety Orthostatic hypertension BPH GERD Osteoporosis with vitamin D deficiency Past Surgical History Hemorrhoidectomy Left hip surgery Reported Medications Requip (Ropinirole) 1 Mg Tab 1 Mg PO TID Doxycycline Hyclate 100 Mg Cap 100 Mg PO BID Alprazolam 0.5 Mg Tab 0.5 Mg PO BID PRN Vitamin D3 (Cholecalciferol) 2,000 Unit Cap 2,000 Units PO DAILY Avodart (Dutasteride) 0.5 Mg Cap 0.5 Mg PO DAILY Seroquel (Quetiapine Fumarate) 25 Mg Tab 12.5 Mg PO BID Sinemet (Carbidopa-Levodopa) 25-100 Mg Tab 2 Tab PO TID Eldepryl (Selegiline HCl) 5 Mg Cap 5 Mg PO BID Restasis Opth 0.05% (Cyclosporine Opth 0.05%) 0.05% Emul 1 Drop EACH EYE BID Seroquel (Quetiapine Fumarate) 50 Mg Tab 50 Mg PO HS Omeprazole 40 Mg Cap 40 Mg PO DAILY Current Medications Medications (Trade) Dose Ordered Sig/Donato Route Start Time Stop Time Status Last Admin Piperacillin Sod/ Tazobactam Sod 50 ml @ 100 mls/hr Q6H IV 09/09/17 20:00 09/10/17 08:34 Sodium Chloride 1,000 ml @ 70 mls/hr [id number] IV 09/09/17 15:00 09/10/17 06:59 (NS Flush) 2 ml UNSCH PRN IV FLUSH 09/09/17 14:15 (NS Flush) 2 ml BID IV FLUSH 09/09/17 21:00 09/10/17 08:34 (Tylenol) 650 mg Q4H PRN PO 09/09/17 14:15 (Lovenox Inj) 40 mg Q24H SQ 09/09/17 16:00 09/09/17 16:08 (Narcan Inj) 0.4 mg UNSCH PRN IV PUSH 09/09/17 14:15 (Jewels-Colace) 1 tab BID PO 09/09/17 21:00 09/10/17 08:35 (Milk Of Magnesia Liq) 30 ml Q12H PRN PO 09/09/17 14:15 (Senokot) 17.2 mg Q12H PRN PO 09/09/17 14:15 (Dulcolax Supp) 10 mg DAILY PRN RECTAL 09/09/17 14:15 (Lactulose Liq) 30 ml DAILY PRN PO 09/09/17 14:15 (Xanax) 0.5 mg BID PRN PO 09/09/17 16:15 (Sinemet 25-100 Mg) 2 tab TID PO 09/09/17 18:00 09/10/17 08:36 ([place] [facility] 5-325 Mg) 1 tab Q4H PRN PO 09/09/17 16:15 (SEROquel) 12.5 mg BID PO 09/09/17 21:00 09/10/17 08:35 (Requip) 1 mg TID PO 09/09/17 18:00 09/10/17 08:36 (Eldepryl) 5 mg BID PO 09/09/17 21:00 09/10/17 08:49 Patient Own Medication PT OWN MED: (Cyclosporine Opth 0.... BID EACH EYE 09/09/17 21:00 Future Hold (Proscar) 5 mg DAILY PO 09/10/17 09:00 09/10/17 08:36 (Protonix) 40 mg DAILY PO 09/10/17 09:00 09/10/17 08:36 (SEROquel) 50 mg HS PO 09/09/17 21:00 09/09/17 21:06 Family History Father had diabetes his mother had breast cancer Substance Use Tobacco:no Alcohol:no Prescription med abuse:no Illicits:no Psychosocial History Originally from [place]. Was a [employer]one [employer]. Has 2 sons Jan and Wolf. Spiritual/Cultural Factors he denies rastafarian affiliation Health Care Surrogate: Completed, but not made available Today's verbally stated goals: Pt state okay with son Wolf to handle medical decision. Pt overall no capacitated. Family/friends goals: Son Wolf ask pt who is in hospice to call home tomorrow. Physical Exam Vital Signs Date Time Temp Pulse Resp B/P (MAP) Pulse Ox O2 Delivery O2 Flow Rate FiO2 09/10/17 12:00 97.5 89 18 139/80 (99) 95 09/10/17 08:00 97.7 92 17 161/78 (105) 94 09/10/17 00:00 97.1 59 16 148/71 (96) 98 09/09/17 20:00 97.3 63 16 138/70 (92) 99 09/09/17 15:57 100.9 89 17 137/88 (104) 96 09/09/17 15:05 99.1 80 20 97 09/10/17 09/11/17 19:00 07:00 Output Total 400 ml Balance -400 ml Output Urine Total 400 ml Exam CONSTITUTIONAL/GENERAL: This is an adequately nourished patient, resting tremor , confused, watching tv SKIN: No jaundice, rashes, or lesions. Ecchymoses on upper extremities. No wounds seen anteriorly. Skin temperature appropriate. Not diaphoretic. HEAD: Atraumatic. Normocephalic. EYES: Pupils equal and round and reactive. Extraocular motions intact. No scleral icterus. No injection or drainage. Fundi not examined. ENT: Hearing grossly normal. Nose without bleeding or purulent drainage. Throat without visible erythema, exudates, masses, or lesions. NECK: Trachea midline. Supple, nontender. No palpable thyroid enlargement or nodularity. CARDIOVASCULAR: Regular rate and rhythm without murmurs, gallops, or rubs. No JVD. Peripheral pulses symmetric. RESPIRATORY/CHEST: Symmetric, unlabored respirations. Clear to auscultation. Breath sounds equal bilaterally. No wheezes, rales, or rhonchi. GASTROINTESTINAL: Abdomen soft, non-tender, nondistended. No hepato-splenomegaly , or palpable masses. No guarding. Bowel sounds present. GENITOURINARY: Without palpable bladder distension. Has brief. MUSCULOSKELETAL: Extremities without clubbing, cyanosis, or edema. No joint tenderness or effusion noted. Resting tremor noted LYMPHATICS: No palpable cervical or supraclavicular adenopathy. NEUROLOGICAL: Awake and alert. resting tremors. Confused. PSYCHIATRIC: No obvious anxiety/depression. Confused Diagnostic Tests Laboratory Laboratory Tests Test 09/09/17 11:30 09/09/17 12:15 White Blood Count 4.5 TH/MM3 (4.0-11.0) Red Blood Count 4.20 MIL/MM3 (4.50-5.90) Hemoglobin 12.9 GM/DL (13.0-17.0) Hematocrit 37.9 % (39.0-51.0) Mean Corpuscular Volume 90.2 FL (80.0-100.0) Mean Corpuscular Hemoglobin 30.6 PG (27.0-34.0) Mean Corpuscular Hemoglobin Concent 33.9 % (32.0-36.0) Red Cell Distribution Width 12.6 % (11.6-17.2) Platelet Count 146 TH/MM3 (150-450) Mean Platelet Volume 6.9 FL (7.0-11.0) Neutrophils (%) (Auto) 94.1 % (16.0-70.0) Lymphocytes (%) (Auto) 5.1 % (9.0-44.0) Monocytes (%) (Auto) 0.2 % (0.0-8.0) Eosinophils (%) (Auto) 0.1 % (0.0-4.0) Basophils (%) (Auto) 0.5 % (0.0-2.0) Neutrophils # (Auto) 4.3 TH/MM3 (1.8-7.7) Lymphocytes # (Auto) 0.2 TH/MM3 (1.0-4.8) Monocytes # (Auto) 0.0 TH/MM3 (0-0.9) Eosinophils # (Auto) 0.0 TH/MM3 (0-0.4) Basophils # (Auto) 0.0 TH/MM3 (0-0.2) CBC Comment DIFF FINAL Differential Comment Prothrombin Time 11.7 SEC (9.8-11.6) Prothromb Time International Ratio 1.1 RATIO Activated Partial Thromboplast Time 26.1 SEC (24.3-30.1) Blood Urea Nitrogen 26 MG/DL (7-18) Creatinine 1.10 MG/DL (0.60-1.30) Random Glucose 83 MG/DL (74-106) Total Protein 6.5 GM/DL (6.4-8.2) Albumin 3.7 GM/DL (3.4-5.0) Calcium Level 8.4 MG/DL (8.5-10.1) Alkaline Phosphatase 65 U/L (45-117) Aspartate Amino Transf (AST/SGOT) 51 U/L (15-37) Alanine Aminotransferase (ALT/SGPT) 29 U/L (12-78) Total Bilirubin 0.9 MG/DL (0.2-1.0) Sodium Level 142 MEQ/L (136-145) Potassium Level 3.8 MEQ/L (3.5-5.1) Chloride Level 105 MEQ/L (98-107) Carbon Dioxide Level 27.0 MEQ/L (21.0-32.0) Anion Gap 10 MEQ/L (5-15) Estimat Glomerular Filtration Rate 65 ML/MIN (>89) Lactic Acid Level 1.6 mmol/L (0.4-2.0) Thyroid Stimulating Hormone 3rd Gen 1.430 uIU/ML (0.358-3.740) Urine Collection Type CLEAN CATCH Urine Color YELLOW (YELLW/STRAW) Urine Turbidity CLEAR (CLEAR) Urine pH 6.5 (5.0-8.5) Urine Specific [place] 1.012 (1.002-1.035) Urine Protein NEG mg/dL (NEG-TRACE) Urine Glucose (UA) NEG mg/dL (NEG) Urine Ketones NEG mg/dL (NEG) Urine Occult Blood LARGE (NEG) Urine Nitrite NEG (NEG) Urine Bilirubin NEG (NEG) Urine Leukocyte Esterase SMALL (NEG) Urine RBC 20-24 /hpf (0-3) Urine WBC 9-14 /hpf (0-5) Urine Squamous Epithelial Cells 0-5 /hpf (0-5) Microscopic Urinalysis Comment CULTURE INDICATED Urine Collection Time 12:15 Result Diagram: 09/09/17 1130 09/09/17 1130 Microbiology Microbiology Date/Time Source Procedure Growth Status 09/09/17 11:40 Blood Peripheral Aerobic Blood Culture - Preliminary NO GROWTH IN 1 DAY Resulted 09/09/17 11:40 Blood Peripheral Anaerobic Blood Culture - Preliminary NO GROWTH IN 1 DAY Resulted 09/09/17 11:30 Blood Peripheral Aerobic Blood Culture - Preliminary Proteus Species Resulted 09/09/17 11:30 Blood Peripheral Anaerobic Blood Culture - Preliminary NO GROWTH IN 1 DAY Resulted 09/09/17 12:40 Nasal Washing Influenza Types A,B Antigen (JE) - Final NEGATIVE FOR FLU A AND B ANTIGEN.... Complete 09/09/17 12:15 Urine Clean Catch Urine Culture - Preliminary Gram Negative Juan Manuel Resulted Imaging Last Impressions Head CT 09/09/17 1155 Signed Impressions: Service Date/Time: Saturday, September 09, 2017 12:28 - CONCLUSION: Negative noncontrast CT. Gopi Chinchilla MD Chest X-Ray 09/09/17 1155 Signed Impressions: Service Date/Time: Saturday, September 09, 2017 12:05 - CONCLUSION: No acute disease. There is no focal consolidation. Gopi Chinchilla MD Patient/Family Conference Present at Family Conference: Wolf (son) patient. Family Conference Time (mins): 45 (30 min son.15 min patient.) Family Conference Location: Bedside, Telephone Issues Discussed: * Palliative care role, purpose, approach * Additional medical, psychosocial, and spiritual history * Patients general health, functional status, and cognitive changes in the months leading up to the current hospitalization * Patient/family understanding of the current medical problems * Patient/family understanding of prognosis * Patients goals of care as best understood from advance directives and/or conversations and/or values * Current medical treatment options and benefits/burdens of those options * Likely scenarios comparing ongoing aggressive care with a transition to comfort measures only * Questions answered to the best of my ability * Palliative care contact information provided Assessment and Plan Disease Oriented Problem List: (1) Parkinson's disease (2) Sepsis (3) UTI (urinary tract infection) Symptom Scale: (1) Urinary frequency 0-10 Scale: Unable to quantify (2) Confusion 0-10 Scale: Unable to quantify Pertinent Non-Medical Issues Psychosocial:lives in nusring home, dementia, dependent on adls. On hospice with [facility] Spiritual:denies rastafarian affiliation Legal:no Ethical issues impacting care: family stated pt want comfort measure only. they recognize sometimes the treatment of uti, would help with symptoms. Facility needs to call hospice or family first before transferring to the hospital. Family has indicated they do not want pt to be transfer to the hospital and were upset that it happen this hospitalization. Important Contacts Wolf Horner [phone] Shannon Horner [phone] Prognosis 77 year old with parkingsons, with hx of recent fall, and now uti that failed outpatient treatment. If goals of care is comfort measures only, would meet hospice critieria. Code Status: No Code Plan == capacity- See HPI. Pt cannot weigh the risk / benefits of medical decision independently on my visit. On my exam I do not believe he has capacity to make medical decision. == Health care decision maker- sons Wolf and Jan. Wolf is currently the closest reachable family. == Code: DNR == Goals of care. Goals of care reviewed with son Wolf He stated is appreciative of medical team taking care of pt, but would prefer if pt goes back to custodial with hospice tomorrow. He understand that if culture are not back by tomorrow, physician will just make the best educated guess, and that pt may decline that way, because not all the tests are back. He is amenable to have [facility] hospice to call back the hospital to follow up on the cultures. I reemphasize, better communication needs to take place between family, hospice , and nursing facility, as family is adamant pt should not be transferred to the hospital. Family indicate, they do now want pt back in the hospital, and it was a hard decision to get pt on hospice in the first place. They said pt does not want further hospitalization, and has multiple ones in the past. ==Symptom urinary frequency/dysuria. associated with uti. consider Azo on d/c. == confusion- likely multifactorial, dementia, made worse with uti. == Palliative Care will follow as clinical condition evolves to assist with goals of care and symptom management. case d/w with attending, and convey that family wants pt to go back to custodial with hospice in the morning. Thank you for the opportunity to participate in the care of Mr. Horner. Attestation To help prompt me to consider important information that might be impacting today's encounter and assessment, information from prior notes written by myself or my colleagues may have been "brought forward" into today's note. My signature on this note, however, is an attestation that I personally performed the exam, history, and/or decision-making noted today, and, unless otherwise indicated, the interactions with patient, family, and staff as well as the review of records all occurred today. I also attest that the listed assessment and stated plan reflect my best clinical judgment today based on the combination of historical information, prior notes, and today's exam/ interactions. When time spent is documented, it refers only to time spent today by the signer, or if indicated, combined time spent today by collaborating physician/nurse practitioner. Dragan Fajardo MD Sep 10, 2017 14:20
[2017-09-10 16:00] VITALS: BP 139/80; PULSE 82; RESP 14; TEMP 97.7; O2SAT 98
[2017-09-10] MEDS: ENOXAPARIN SODIUM 40 MG/0.4 ML SYRINGE SQ SCH (17:05)
[2017-09-10 20:00] VITALS: BP 186/88; PULSE 57; RESP 16; TEMP 96.5; O2SAT 97
[2017-09-11] VITALS: BP 147/95; PULSE 65; RESP 16; TEMP 95.6; O2SAT 97
[2017-09-11] MEDS: PIPERACIL-TAZO 3.375 GM PREMIX 50 ML IV SCH ×3 (01:45→12:29)
[2017-09-11 08:00] VITALS: BP 175/100; PULSE 61; RESP 16; TEMP 98; O2SAT 99
[2017-09-11] MEDS: PANTOPRAZOLE SOD 40 MG DELAYED RELEASE TAB PO SCH (08:16)
[2017-09-11] MEDS: FINASTERIDE 5 MG TAB PO SCH (08:16)
[2017-09-11] MEDS: SODIUM CHLORIDE 0.9% FLUSH 10 ML FLUSH IV FLUSH SCH (08:16)
[2017-09-11] MEDS: QUEtiapine FUMARATE 25 MG TAB PO SCH (08:16)
[2017-09-11] MEDS: CARBIDOPA/LEVODOPA 25 MG/100 MG TAB PO SCH ×3 (08:16→17:28)
[2017-09-11] MEDS: DOCUSATE SODIUM 50 MG/SENNA 8.6 MG TAB PO SCH (08:17)
[2017-09-11] MEDS: SODIUM CHLOR 0.9% 1000 ML INJ 1,000 ML IV SCH (08:17)
[2017-09-11] MEDS: SELEGILINE HCL 5 MG CAP PO SCH (08:17)
--- NOTE | 2017-09-11 11:19 | HHI.PR ---
Subjective Remarks Patient has been afebrile. He denies pain. Objective Vitals Vital Signs Date Time Temp Pulse Resp B/P (MAP) Pulse Ox O2 Delivery O2 Flow Rate FiO2 09/11/17 08:00 98.0 61 16 175/100 (125) 99 09/11/17 00:00 95.6 65 16 147/95 (112) 97 09/10/17 20:00 96.5 57 16 186/88 (120) 97 09/10/17 16:00 97.7 82 14 139/80 (99) 98 09/10/17 12:00 97.5 89 18 139/80 (99) 95 I/O 09/10/17 09/10/17 09/10/17 09/11/17 09/11/17 09/11/17 07:00 15:00 23:00 07:00 15:00 23:00 Intake Total 290 ml 870 ml 1770 ml 687 ml Output Total 400 ml 400 ml 200 ml Balance -110 ml 470 ml 1570 ml 687 ml Intake Oral 240 ml 720 ml 240 ml IV Total 50 ml 870 ml 1050 ml 447 ml Output Urine Total 400 ml 400 ml 200 ml # Voids 9 3 # Bowel Movements 0 0 0 Result Diagram: 09/09/17 1130 09/09/17 1130 Objective Remarks GENERAL: This is a well-nourished, well-developed male patient, in no apparent distress. SKIN: No rashes, ecchymoses or lesions. Cool and dry. HEAD: Atraumatic. Normocephalic. EYES: Pupils equal. No scleral icterus. No injection or drainage. NECK: Trachea midline. No JVD or lymphadenopathy. Supple, nontender, no meningeal signs. CARDIOVASCULAR: Regular rate and rhythm without murmurs, gallops, or rubs. RESPIRATORY: Clear to auscultation. Breath sounds equal bilaterally. No wheezes , rales, or rhonchi. GASTROINTESTINAL: Abdomen soft, non-tender, nondistended. MUSCULOSKELETAL: Extremities without clubbing, cyanosis, or edema. NEUROLOGICAL: Awake and alert. Oriented to self and place but not date. Cogwheel rigidity in upper extremities bilaterally. Speech within normal limits. A/P Problem List: (1) Sepsis ICD Code: A41.9 - Sepsis, unspecified organism Status: Acute (2) UTI (urinary tract infection) ICD Code: N39.0 - Urinary tract infection, site not specified Status: Acute Assessment and Plan -Gram-negative lottie sepsis likely due to UTI - blood culture with Proteus species , urine culture with Morganella sensitive to Rocephin. Vital signs stable. Patient is currently on hospice at his assisted living facility. Palliative care was consulted. The patient's family does not wish for him to remain in the hospital and requests he be discharged home today. They understand that I do not have the results of his sensitivity from the blood culture and that IV antibiotics are indicated for sepsis. They still wish him to be discharged home and understand that he may decompensate further. Will write for Ceftin by mouth --Hypertension, also has history of orthostatic hypotension. Currently not on medication for this. Will monitor blood pressure. -Parkinson's dementia - continue home medications including Requip, selegiline, Sinemet, Seroquel. -Anxiety - continue Xanax as needed. -BPH. Continue Avodart. -GERD. Continue omeprazole. Discharged to assisted living facility with hospice as per family request. Ceftin prescription provided. Continue home medications. Problem Qualifiers (1) Sepsis: (2) UTI (urinary tract infection): Shonna Bunch MD Sep 11, 2017 11:19
[2017-09-11] MEDS ORDERED: CEFU1TAB42 PO (11:20)
[2017-09-11] MEDS ORDERED: CEFD300C PO (11:24)
[2017-09-11 12:00] VITALS: BP 190/119; PULSE 66; RESP 16; TEMP 97.2; O2SAT 100
[2017-09-11 12:30] VITALS: BP 146/78
[2017-09-11 16:00] VITALS: BP 175/100; PULSE 67; RESP 16; TEMP 98.4; O2SAT 99
[2017-09-11] MEDS: ENOXAPARIN SODIUM 40 MG/0.4 ML SYRINGE SQ SCH (17:28)
== END 2017-09-11 18:35 | disposition hospice, home (50) | DRG 872 ==
LOC: PHED 11:19 → EDUNIT# 14:16 → PHEDA 14:16 → PH3B 15:28
PROVIDERS: ADMIT Family Medicine; ATTEND Family Medicine
DX: A41.50 Gram-negative sepsis, unspecified (principal); G20 Parkinson's disease; F02.80 Dementia in other diseases classified elsewhere, unspecified severity, without behavioral disturbance, psychotic disturbance, mood disturbance, and anxiety; N30.00 Acute cystitis without hematuria; M81.0 Age-related osteoporosis without current pathological fracture; M19.90 Unspecified osteoarthritis, unspecified site; F41.9 Anxiety disorder, unspecified; N40.0 Benign prostatic hyperplasia without lower urinary tract symptoms; R32 Unspecified urinary incontinence; Z87.440 Personal history of urinary (tract) infections; R51 Headache; I10 Essential (primary) hypertension; K21.9 Gastro-esophageal reflux disease without esophagitis; Z83.3 Family history of diabetes mellitus; Z80.3 Family history of malignant neoplasm of breast; R29.6 Repeated falls; Z66 Do not resuscitate; E55.9 Vitamin D deficiency, unspecified
CPT/HCPCS: 51702; 70450; 71010; 80053; 81001; 83605; 84443; 85025; 85610; 85730; 87040; 87077; 87086; 87186; 87205; 87804; 93005; 96361; 96374; J1650; J2543; J3370; J7030; J7050